=== PATIENT | male | born 1945 | race Caucasian/White ===

== ENCOUNTER 2020-09-27 10:55 | Emergency (ER) | payer OTHER ==
[2020-09-27 12:02] LABS: BASOPHIL 0.2 % (0-2); EOSINOPHIL 0.1 % (0-7); MCH 32.4 pg (25.0-31.0); MCHC 34.2 g/dL (32.0-36.0); MCV 94.8 fL (78.0-100.0); MONOCYTE 11.5 % (0-12); MPV 12.5 fL (6.0-9.5); NEUTROPHIL 75.7 % (41-80); NRBC 0; PLT 92 K/uL (150-400); RBC 4.01 M/uL (4.70-6.00); RDW 13.3 % (11.5-14.0); WBC 14.1 K/uL (4.0-10.5)
[2020-09-27 12:20] LABS: ALBUMIN 3.1 g/dL (3.4-5.0); BILIRUBIN - TOTAL 2.1 mg/dL (0.2-1.0); BUN/CREAT RATIO (CALC) 20.7 RATIO; CREATININE 0.87 mg/dL (0.67-1.17); GLOBULIN (CALCULATION) 3.9 g/dL; POTASSIUM 3.9 mmol/L (3.5-5.1)
[2020-09-27 13:21] LABS: INR 1.46 (0.9-1.2); PROTHROMBIN TIME 16.9 SECONDS (11.4-13.6); PTT 39.3 SECONDS (22.2-34.7)
== END 2020-09-27 13:03 | disposition home or self-care (01) ==
LOC: FER 10:55
PROVIDERS: Emergency Medicine
DX: R04.0 Epistaxis (principal); I48.91 Unspecified atrial fibrillation; Z86.73 Personal history of transient ischemic attack (TIA), and cerebral infarction without residual deficits; Z87.891 Personal history of nicotine dependence; Z79.01 Long term (current) use of anticoagulants; Z79.899 Other long term (current) drug therapy
CPT/HCPCS: 36415; 80053; 85025; 85610; 85730; 99283

== ENCOUNTER 2021-10-12 13:40 | Emergency (ER) | payer OTHER ==
[2021-10-12 14:19] LABS: BASOPHIL 0.3 % (0-2); EOSINOPHIL 0.8 % (0-7); HCT 41.6 % (42.0-52.0); HGB 13.6 g/dl (13.2-18.0); MCH 31.6 pg (25.0-31.0); MCHC 32.7 g/dL (32.0-36.0); MCV 96.7 fL (78.0-100.0); MONOCYTE 13.9 % (0-12); MPV 12.6 fL (6.0-9.5); NEUTROPHIL 74.5 % (41-80); NRBC 0; PLT 103 K/uL (150-400); RDW 13.6 % (11.5-14.0)
[2021-10-12 14:24] LABS: INR 1.14 (0.9-1.2); PTT 32.7 SECONDS (24.4-34.7)
[2021-10-12 14:35] LABS: ALBUMIN 3.4 g/dL (3.4-5.0); BILIRUBIN - TOTAL 6.3 mg/dL (0.2-1.0); CREATININE 1.05 mg/dL (0.67-1.17); GLOBULIN (CALCULATION) 3.9 g/dL; POTASSIUM 3.8 mmol/L (3.5-5.1); TOTAL PROTEIN 7.3 g/dL (6.4-8.2)
[2021-10-12 19:06] LABS: BILIRUBIN 2+ mg/dL (NEGATIVE); BLOOD NEGATIVE Ery/uL (NEGATIVE); CLARITY CLEAR (CLEAR); COLOR YELLOW (YELLOW); GLUCOSE (U) NORMAL (NORMAL); LEUKOCYTES 2+ Leu/uL (NEGATIVE); NITRITE POSITIVE (NEGATIVE); PROTEIN NEGATIVE (NEGATIVE); UROBILINOGEN >=8.0 mg/dL (0.2-1.0)
[2021-10-12 19:12] LABS: BACTERIA 4+; URINARY WBC TNTC
[2021-10-12 19:13] LABS: SQUAMOUS EPITHELIAL CELLS RARE
== END 2021-10-12 20:00 | disposition left against medical advice (07) ==
LOC: FER 13:40
PROVIDERS: Emergency Medicine
DX: S22.089A Unspecified fracture of T11-T12 vertebra, initial encounter for closed fracture (principal); K80.50 Calculus of bile duct without cholangitis or cholecystitis without obstruction; Z28.310 Unvaccinated for COVID-19; W19.XXXA Unspecified fall, initial encounter
CPT/HCPCS: 36415; 71045; 72110; 72128; 80053; 81001; 82553; 84484; 85025; 85610; 85730; 93005; J7030; Q9967

== ENCOUNTER 2021-10-13 09:02 | Emergency (ER) | payer OTHER ==
[2021-10-13 10:20] LABS: BASOPHIL 0.4 % (0-2); EOSINOPHIL 0.6 % (0-7); HCT 38.8 % (42.0-52.0); HGB 12.7 g/dl (13.2-18.0); LYMPHOCYTE 8.5 % (15-48); MCHC 32.7 g/dL (32.0-36.0); MCV 97.7 fL (78.0-100.0); MONOCYTE 12.2 % (0-12); MPV 12.7 fL (6.0-9.5); NRBC 0; PLT 97 K/uL (150-400); RBC 3.97 M/uL (4.70-6.00); RDW 13.8 % (11.5-14.0); WBC 6.9 K/uL (4.0-10.5)
[2021-10-13 10:40] LABS: ALBUMIN 3.1 g/dL (3.4-5.0); BUN/CREAT RATIO (CALC) 19.2 RATIO; CREATININE 0.99 mg/dL (0.67-1.17); GLOBULIN (CALCULATION) 3.9 g/dL
[2021-10-13 10:44] LABS: BILIRUBIN - TOTAL 3.7 mg/dL (0.2-1.0)
== END 2021-10-13 18:47 | disposition other institution (70) ==
LOC: FER 09:02
PROVIDERS: Emergency Medicine
DX: K80.50 Calculus of bile duct without cholangitis or cholecystitis without obstruction (principal)
CPT/HCPCS: 36415; 80053; 85025